=== PATIENT | male | born 1970 | race Two or more races ===

== ENCOUNTER 2024-03-02 09:46 | Emergency (ER) | payer MEDICAID, SELFPAY ==
--- NOTE | 2024-03-02 09:59 | XR_ITS ---
Examination: CT brain head without contrast. 2-D sagittal coronal reconstructions Date and time of exam:March 02, 2024 1047 hrs. Indications: Onset seizures today, focal neurologic deficit CTDI: vol (mGy):48 DLP: (mGycm):924 Technique: Multiple CT axial sections of the brain have been obtained, 5 mm slice thickness. Contrast has not been administered. 2-D sagittal, coronal reconstructions have been obtained Low dose protocols were performed. One or more of the following dose reduction techniques were used; automated exposure control, adjustment of the mA and/or KV according to patient size, use of iterative reconstruction technique. Findings: No significant ventricular enlargement. Intra-axial or extra-axial hemorrhage density is not seen. No mass effect or midline shift Basal cisterns are not remarkable. Fourth ventricle is midline. Cranial vault intact. Impression: Negative for acute hemorrhage, mass effect or midline shift Consider brain MRI follow-up, pre and postcontrast, seizure protocol
[2024-03-02 10:00] VITALS: PULSE 84; RESP 18; O2SAT 99; BMI 24.3
[2024-03-02 10:11] VITALS: BP 166/105; PULSE 75; RESP 24; TEMP 37.2; O2SAT 96
--- NOTE | 2024-03-02 10:20 | PD.EDSEIZ ---
ED Seizures RME/HPI General Chief Complaint: Seizure Stated Complaint: SEIZURE ACTIVITY WITH NO PRIOR HX; FOAMING MOUTH Time Seen by Provider: 03/02/24 09:54 Arrival date/time: 03/02/24 09:46 Limitations: no limitations RME / HPI RME / HPI Narrative: DR. MARIO ALBERTO NORWOOD ED EVALUATION: 53 year old male with no past medical history presents to the Emergency Department [facility] with complaint of a possible seizure at home, not witnessed; however, at EMS arrival, patient appeared to have some mild foam at the mouth and it was postal. Patient otherwise healthy without past history of seizures. He is a daily drinker and stopped drinking three days ago. He denies drugs. Currently is, back to baseline mental status, denies headache. He does note body tremors. Related Data Allergies Allergy/AdvReac Type Severity Reaction Status Date / Time No Known Allergies Allergy Verified 03/02/24 09:47 Review of Systems Review of Systems Systems Reviewed: All systems reviewed, normal except as documented Narrative Review of Systems: GEN: No fever, no chills, no weight loss EYES: No discharge, no visual changes, no pain HEENT: No ear pain, no congestion, no sore throat PULM: No shortness of breath, no cough, no congestion CV: No chest pain, no dyspnea on exertion, no palpitations GI: No nausea, no vomiting, no diarrhea, no pain, no constipation : No frequency, no urgency and no dysuria MUSC/SKEL: No joint pain, no back pain SKIN: No rash PSYCH: No hallucinations, no depression HEME/LYMPH: No easy bleeding or bruising tendencies NEURO: No weakness, + headache, + possible seizure (see HPI), + body tremors Past Medical History Social History SMOKING STATUS: Never smoker SUBSTANCE USE: does not use ALCOHOL: Current ALCOHOL LAST INTAKE: Days (ago) (3) ED Exam General Limitations: Present no limitations General appearance: Present alert, in no apparent distress and other (He does have some fine body tremors.) Head Head exam: Present atraumatic, normocephalic and normal inspection Eye Eye exam: Present normal appearance, PERRL and EOMI ENT ENT exam: Present normal exam, normal oropharynx and mucous membranes moist Neck Neck exam: Present normal inspection, full ROM and trachea midline Chest Chest inspection: Present normal inspection and symmetric chest wall rise Respiratory Respiratory exam: Present normal lung sounds bilaterally Cardiovascular Cardiovascular exam: Present regular rate, normal rhythm and normal heart sounds Abdominal Exam Abdominal exam: Present soft and normal bowel sounds Extremities Exam Extremities exam: Present normal inspection and full ROM Back Exam Back exam: Present normal inspection and full ROM Neurological Exam Neurological exam: Present alert, oriented X3 and CN II-XII intact Psychiatric Psychiatric exam: Present normal affect and normal mood Skin Skin exam: Present warm, dry, intact and normal color Course Quality Measures none Orders Category Date Time Status EKG (ED ONLY) *Do not use* NOW Care 03/02/24 10:[address] head/brain wo con Stat Exams 03/02/24 09:59 Completed EKG (ED Only) Stat Exams 03/02/24 10:22 Ordered CBC Stat Lab 03/02/24 10:49 Completed CMP [Comprehensive Metabolic Panel] Stat Lab 03/02/24 10:49 Completed Drug Screen,Urine Stat Lab 03/02/24 10:22 Completed Diazepam [Valium] Med 03/02/24 09:58 Discontinued 20 mg PO X1 ONE Diazepam [Valium] Med 03/02/24 12:00 Discontinued 20 mg PO X1 ONE Reevaluation(s) Reevaluation #1: No further seizures here in the emergency department. Reassessment after 20 mg of Valium PO, no further seizures, he still has fine tremors and is wide awake without any slurred speech. Will give an additional 20 mg of Valium and will be discharged home. Patient remains clinically stable throughout the emergency department visit. Re-assessment at the time of disposition demonstrates that the patient is in no acute distress. We reviewed all the results, analysis, and treatment plans. Patient is amenable to discharge. Strict return precautions were outlined. Patient was discharged in stable condition. Time: 11:45 Vital Signs Vital signs: Vital Signs Temperature 98.9 F 03/02/24 10:11 Pulse Rate 75 03/02/24 10:11 Respiratory Rate 24 H 03/02/24 10:11 Blood Pressure 166/105 H 03/02/24 10:11 Pulse Oximetry (%) 96 03/02/24 10:11 Oxygen Delivery Method Room Air 03/02/24 10:11 Procedures -ED EKG Interpretation #1: Date of EK03/02/24 Time of EK:30 Rate: 66 Interpretation: Interpreted by me Additional EKG comment: sinus rhythm, rate 66, normal intervals, normal axis, no acute ST-T wave changes, no STEMI Seizure MDM Narrative MDM Narrative:: I, Mahi Howe, am scribing for and in the presence of Dr. Smalls. Patient data External records reviewed:: EMS form Clinical information provided by:: patient and EMS Social determinants that could affect healthcare access:: alcohol use Patient has the following chronic illnesses:: Denies any PMHx, surgeries, daily medications, or known allergies. No past history of seizures. How is presenting disease/condition affected by chronic disease/condition?: no chronic disease Evaluation data The following diagnostics were reviewed and interpreted by me:: lab results, radiology exam(s) and EKG tracing(s) Lab and/or radiology exams considered but not ordered:: none Interpretation Summary: Procedure(s): CT head/brain wo con Accession Number(s): [id number] cc: Daljit Smalls MD; Padilla Troncoso MD; NO PRIMARY/FAMILY,PHYSICIAN~ Examination: CT brain head without contrast. 2-D sagittal coronal reconstructions Date and time of exam:March 02, 2024 1047 hrs. Indications: Onset seizures today, focal neurologic deficit CTDI: vol (mGy):48 DLP: (mGycm):924 Technique: Multiple CT axial sections of the brain have been obtained, 5 mm slice thickness. Contrast has not been administered. 2-D sagittal, coronal reconstructions have been obtained Low dose protocols were performed. One or more of the following dose reduction techniques were used; automated exposure control, adjustment of the mA and/or KV according to patient size, use of iterative reconstruction technique. Findings: No significant ventricular enlargement. Intra-axial or extra-axial hemorrhage density is not seen. No mass effect or midline shift Basal cisterns are not remarkable. Fourth ventricle is midline. Cranial vault intact. Impression: Negative for acute hemorrhage, mass effect or midline shift Consider brain MRI follow-up, pre and postcontrast, seizure protocol Dictated By: Padilla Troncoso MD Medications / Prescriptions Medications or Prescriptions considered but not ordered:: none Medication administrations:: Medication Administration History Discontinued Medications Diazepam (Diazepam 5 Mg Tablet) 20 mg PO X1 ONE Stop: 03/02/24 09:59 Last Admin: 03/02/24 10:28 Dose: 20 mg Documented By: GM Diazepam (Diazepam 5 Mg Tablet) 20 mg PO X1 ONE Stop: 03/02/24 12:01 Last Admin: 03/02/24 13:10 Dose: 20 mg Documented By: KALPANA see above Consultations Consultation(s) initiated? (list below): No Diagnosis Seizure Differential Diagnosis: generalized seizure and other (alcohol withdrawal, alcohol withdrawal seizure) Most likely diagnosis given after review of the tests above:: Alcohol withdrawal seizure Alcohol withdrawal Admission Indicated Admission indicated?: not indicated Admission Request Was there a request for admission?: No Disposition Plan Disposition Plan: Discharge Discharge Attestation Discharge Attestation: The patient and all family members were given an opportunity to ask questions and understood the discharge instructions. Discharge instructions specifically effects, indications for sooner follow up or return to the emergency department, and the expected course of current diagnosis. Patient condition: Stable Discharge Plan Plan Patient Disposition: HOME (Self Care) Prescriptions/Referrals Referrals: No Primary/Family,Physician [Primary Care Provider] - In 1 week Problem List Clinical Impression: Alcohol withdrawal seizure, Alcohol withdrawal Patient/Caregiver Discharge Instructions Education Materials: ED Alcohol Withdrawal Seizure Additional Instructions: Considere dejar de consumir alcohol para mejorar thompson emma. Puede hacer un seguimiento con thompson m?dico de atenci?n primaria y/o con el departamento de emma mental del condado si se siente listo para la rehabilitaci?n de alcohol y/o drogas. Puede regresar al departamento de emergencias antes si los s?ntomas empeoran o si nota alg?n problema nuevo que le preocupe. Print Language: [place] Stand Alone Forms: Chaya Award Info., Patient Portal Info Letter
[2024-03-02] MEDS: DIAZEPAM 5 MG TABLET 20 MG PO ×2 (10:28→13:10)
[2024-03-02 10:30] VITALS: BP 161/105; PULSE 79; RESP 22; TEMP 36.8; O2SAT 96
[2024-03-02 11:01] LABS: Amphetamine/Methamp Scrn,U Negative (Negative); Barbiturate Screen,Urine Negative (Negative); Benzodiazepines Screen,Urine Negative (Negative); Benzoylecgonine Screen, Ur Negative (Negative); Fentanyl Screen,Urine Negative (Negative); Opiate Screen,Urine Negative (Negative); THC Screen,Urine Negative (Negative)
[2024-03-02 11:22] LABS: Basophils % (Auto) 0 % (0-2.5); Eosinophils % (Auto) 0 % (0-10); Hematocrit 43.2 % (41.0-53.0); Hemoglobin 15.8 g/dL (13.5-16.0); Immature Granulocytes % (Auto) 0 % (0-0); Immature Granulocytes Auto 0.03 Thou/mm3 (0.00-0.00); Lymphocytes # (Auto) 0.5 Thou/mm3 (1.0-4.8); Lymphocytes % (Auto) 7 % (10-50); Mean Corpuscular HGB Conc 36.6 g/dl (31.0-37.0); Mean Corpuscular Volume 96 fL (80-100); Monocytes # (Auto) 0.8 Thou/mm3 (0.0-0.8); Monocytes % (Auto) 12 % (0-12); Neutrophils # (Auto) 5.6 Thou/mm3 (1.8-7.7); Neutrophils % (Auto) 81 % (37-80); Nucleated Red Blood Cell % 0 /100 WBC (0); Platelet Count 150 Thou/mm3 (140-440); RDW Standard Deviation 40.7 fL (35.1-43.9); Red Blood Count 4.51 Miln/mm3 (4.50-5.90)
[2024-03-02 11:42] LABS: Alanine Aminotransferase 122 U/L (10-49); Albumin/Globulin Ratio 1.8 (1.2-2.2); Alkaline Phosphatase 201 U/L (46-116); Anion Gap 9 (7-16); Aspartate Amino Transferase 182 U/L (0-34); BUN/Creatinine Ratio 21 Ratio (12-20); Bilirubin,Total 3.3 mg/dL (0.3-1.2); Blood Urea Nitrogen 15 mg/dL (9-23); Calcium 9.6 mg/dL (8.3-10.6); Calcium (Corrected) 9.6 mg/dL (8.5-10.1); Carbon Dioxide 27.4 mMol/L (20.0-31.0); Chloride 99 mMol/L (98-107); Creatinine (Component) 0.7 mg/dL (0.6-1.3); Estimated Creatinine Clearance 124.8 mL/min (>60); Globulin 2.8 gm/dL (2.3-3.5); Glucose 109 mg/dL (74-106); Osmolality,Calculated 271 (275-295); Potassium 3.5 mMol/L (3.4-5.1); Sodium 135 mMol/L (136-145); Total Protein 7.8 gm/dL (5.7-8.2); eGFR > 60 See Note
[2024-03-02 13:12] VITALS: BP 152/100; PULSE 70; RESP 19; TEMP 36.6; O2SAT 96
== END 2024-03-02 13:25 | disposition home or self-care (01) ==
PROVIDERS: Emergency Provider Emergency Medicine
DX: F10.939 Alcohol use, unspecified with withdrawal, unspecified (principal); R56.9 Unspecified convulsions; R29.818 Other symptoms and signs involving the nervous system; R94.31 Abnormal electrocardiogram [ECG] [EKG]
CPT/HCPCS: 36415; 70450; 80053; 80307; 85025; 93005; 99284; A9270